=== PATIENT | female | born 1985 | race American Indian/Alaskan Native ===

== ENCOUNTER 2018-06-16 14:16 | Emergency (ER) | payer SELFPAY ==
[2018-06-16 14:42] VITALS: BP 132/68
[2018-06-16 15:35] LABS: Bacteria,Urine 1+ /HPF (Negative); Bilirubin,Urine NEG (Negative); Blood,Urine NEG (Negative); Color,Urine Yellow (Yellow); Mucus,Urine FEW /HPF; Protein,Urine <15 mg/dL mg/dL (Negative); Urobilinogen,Urine < 2.0 mg/dL (<2.0)
--- NOTE | 2018-06-16 17:07 | Emergency Department Report ---
ED Female HPI - General Chief complaint: Urogenital-Female Stated complaint: POSSIBLE MISCARRAGE Source: patient Mode of arrival: Ambulatory Limitations: No Limitations - History of Present Illness Initial comments: This is a 32-year-old -[place] female who presents with vaginal bleeding during . Patient states she took a home test in April that was positive. She is followed by [facility]. Patient states she did not plan on chief in . She had an appointment with clinic and told to follow-up in the ER because this could be active miscarriage. Last menstrual period 04/12/2013, A2. Patient states initially she was passing large amounts of blood 3-4 days ago with no pain. Bleeding slowed and the color change to dark brown. Patient denies passing or clots. She currently denies pelvic or low back pain, frequency, urgency, and dysuria. MD Complaint: vaginal bleeding Onset/Timin -: week(s) Severity scale (0 -10): 0 Are you Now?: Yes Last Menstrual Period: 04/12/18 EDC: 01/17/19 Associated Symptoms: vaginal bleeding. denies: vaginal discharge, abdominal pain, nausea/vomiting, fever/chills, headaches, loss of appetite, dysuria, hematuria, rash, seizure, shortness of breath, syncope, weakness - Related Data Sexually active: Yes : 4 Para: 1 A: 2 Allergies Allergy/AdvReac Type Severity Reaction Status Date / Time No Known Allergies Allergy Unverified 06/16/18 14:42 ED Review of Systems ROS: Stated complaint: POSSIBLE MISCARRAGE Other details as noted in HPI Constitutional: denies: chills, fever Respiratory: denies: cough, shortness of breath, wheezing Cardiovascular: denies: chest pain, palpitations Gastrointestinal: denies: abdominal pain, nausea, diarrhea Genitourinary: other (bleeding during ). denies: urgency, dysuria, discharge Skin: denies: rash, lesions Neurological: denies: headache, weakness, paresthesias Psychiatric: denies: anxiety, depression ED Past Medical Hx - Past Medical History Previous Medical History?: No - Social History Smoking Status: Never Smoker Substance Use Type: None ED Physical Exam - General Limitations: No Limitations General appearance: alert, in no apparent distress - Respiratory Respiratory exam: Present: normal lung sounds bilaterally. Absent: respiratory distress - Cardiovascular Cardiovascular Exam: Present: regular rate, normal rhythm. Absent: systolic murmur, diastolic murmur, rubs, gallop - GI/Abdominal GI/Abdominal exam: Present: soft, tenderness (LLQ & RLQ), normal bowel sounds. Absent: distended, guarding, rebound, rigid, organomegaly, mass - Back Exam Back exam: Present: normal inspection - Neurological Exam Neurological exam: Present: alert, oriented X3 - Psychiatric Psychiatric exam: Present: normal affect, normal mood - Skin Skin exam: Present: warm, dry, intact, normal color. Absent: rash ED Course Vital Signs 06/16/18 14:38 Temperature 98.6 F Pulse Rate 92 H Respiratory 18 Rate Blood Pressure 132/68 O2 Sat by Pulse 100 Oximetry ED Medical Decision Making - Lab Data Lab Results 06/16/18 06/16/18 06/16/18 Range/Units 14:46 14:46 15:08 HCG, Quant [id number] H (0-4) mIU/mL Urine Color Yellow (Yellow) Urine Turbidity Slightly-cloudy (Clear) Urine pH 6.0 (5.0-7.0) Ur Specific [place] 1.019 (1.003-1.030) Urine Protein <15 mg/dl (Negative) mg/dL Urine Glucose (UA) Neg (Negative) mg/dL Urine Ketones Neg (Negative) mg/dL Urine Blood Neg (Negative) Urine Nitrite Neg (Negative) Urine Bilirubin Neg (Negative) Urine Urobilinogen < 2.0 (<2.0) mg/dL Ur Leukocyte Esterase Neg (Negative) Urine WBC (Auto) 1.0 (0.0-6.0) /HPF Urine RBC (Auto) 3.0 (0.0-6.0) /HPF Urine Bacteria (Auto) 1+ (Negative) /HPF Urine Mucus Few /HPF Blood Type O POSITIVE - Radiology Data Radiology results: report reviewed Ultrasound OB impression: 1. Demonstration of single living and intrauterine gestation with estimated gestational age of 10 weeks 6 days by measurement crown-rump length. 2. Possible small subchorionic hemorrhage. - Medical Decision Making Patient was examined by me. Vitals are normal and patient is in no acute distress. Obtained labs and OB ultrasound. Report reviewed by myself with the followin. Demonstration of single living and intrauterine gestation with estimated gestational age of 10 weeks 6 days by measurement crown-rump length. 2. Possible small subchorionic hemorrhage. Follow up with [facility]. Patient discharged home in stable condition. Critical care attestation.: If time is entered above; I have spent that time in minutes in the direct care of this critically ill patient, excluding procedure time. ED Disposition Clinical Impression: Vaginal bleeding during , Threatened Subchorionic hemorrhage in first trimester Qualifiers: Fetus number: single or unspecified fetus Qualified Code(s): O41.8X10 - Other specified disorders of amniotic fluid and membranes, first trimester, not applicable or unspecified Disposition: DC-01 TO HOME OR SELFCARE Is pt being admited?: No Does the pt Need Aspirin: No Condition: Stable Instructions: Threatened Miscarriage (ED) Additional Instructions: Follow-up with [facility] for continued care. Referrals: [facility] [Provider Group] - 3-5 Days [facility] [Provider Group] - 3-5 Days Time of Disposition: 19:11
--- NOTE | 2018-06-16 18:24 | Ultrasound Report ---
FINAL REPORT EXAM: US OB < = 14 WEEKS FETUS HISTORY: vaginal bleeding during . Date of last menstrual period is unknown. TECHNIQUE: Transabdominal grayscale, color flow and M-mode imaging of the pelvis was performed. Comparison: Transvaginal study also performed today FINDINGS: The uterus measures 11.4 centimeters x 7.7 centimeters by 9 centimeters. There is demonstration of an intrauterine gestation with estimated gestational age of 10 weeks 6 days by measurements of crown-rump length. The heart rate is measured at 166 beats per minute. There is a small, approximately 18 millimeter x 5.4 millimeter x 18 millimeter subchorionic hypoechoic collection which may represent a small subchorionic hemorrhage. The left ovary measures 3.6 centimeters x 1.6 centimeters x 2.7 centimeters and contains a probable corpus luteum cyst that measures approximately 2.3 centimeters in the maximum dimension. The right ovary measures 2.5 centimeters x 1.6 centimeters x 1.4 centimeters and is unremarkable in appearance. Flow is demonstrated in both ovaries. No free fluid is demonstrated in the pelvis. IMPRESSION: 1. Demonstration of a single living intrauterine gestation with estimated gestational age of 10 weeks 6 days by measurement of crown-rump length. 2. Possible small subchorionic hemorrhage. Please see report of transvaginal study also performed today.
--- NOTE | 2018-06-16 18:28 | Ultrasound Report ---
FINAL REPORT EXAM: US OB TRANSVAGINAL HISTORY: vaginal bleeding during TECHNIQUE: Transvaginal grayscale and color-flow imaging of the pelvis was performed. Comparison: Transabdominal study also performed today FINDINGS: The cervix is closed and unremarkable in appearance. There is demonstration of a single living intrauterine gestation with estimated gestational age of 10 weeks 6 days by measurement of crown-rump length. heart rate is measured at 166 beats per minute. The placenta is anterior. The inferior aspect of the placenta appears to cover the cervical os. The right ovary measures 2.7 centimeters x 1.2 centimeters x 1.7 centimeters and is unremarkable in appearance. Flow is demonstrated in the right ovary utilizing color flow imaging. The left ovary is not visualized on the transvaginal study. No free fluid is demonstrated in the pelvis. IMPRESSION: 1. Single living intrauterine gestation with estimated gestational age of 10 weeks 6 days by measurement of crown-rump length. 2. The inferior aspect of the placenta appears to cover the cervical os. Continued surveillance for possible placenta previa is recommended. Please see transvaginal ultrasound report also performed today.
== END 2018-06-16 19:35 | disposition home or self-care (01) ==
LOC: ED 14:16
DX: O26.891 Other specified pregnancy related conditions, first trimester (principal); O41.8X10 Other specified disorders of amniotic fluid and membranes, first trimester, not applicable or unspecified; O20.0 Threatened abortion; Z3A.10 10 weeks gestation of pregnancy
CPT/HCPCS: 36415; 76801; 76817; 81001; 84702; 86900; 86901